=== PATIENT | female | born 1985 | race Caucasian/White ===

== ENCOUNTER 2017-02-22 09:33 | Inpatient (IN) | payer BC ==
[2017-02-22 11:24] LABS: Hematocrit 38 % (35-47); Hemoglobin 12.3 g/dl (12.0-16.0); Mean Corpuscular HGB Conc 32 g/dl (31-36); Mean Corpuscular Hemoglobin 29 pg (27-31); Mean Corpuscular Volume 89 fL (80-97); Red Blood Count 4.29 10^6/ul (4.0-5.4); Red Cell Distribution Width 16 % (10.5-15); White Blood Count 12.1 10^3/ul (3.5-10.8)
[2017-02-22 11:34] LABS: Add Diff/Slide Review? Slide Review Added; Comments Flag Yes
[2017-02-22] MEDS ORDERED: OBEPIDURAL* 250 ML ONE (13:49)
[2017-02-22] MEDS ORDERED: Famotidine TAB* 20 MG PO PRN (15:27)
[2017-02-22] MEDS ORDERED: Phenylephrine IV* 40 MCG/ML 10 ML SYRINGE IV PUSH PRN ×2 (15:27)
[2017-02-22] MEDS ORDERED: EPHEDrine (Pressors)* 50 MG/ML VIAL IV PUSH PRN ×2 (15:27)
[2017-02-22] MEDS ORDERED: Sodium Citrate/Citric Acid* 15 ML UDC PO PRN (15:27)
[2017-02-22] MEDS ORDERED: OBEPIDURAL* 250 ML EPIDURAL SCH (16:00)
[2017-02-22] MEDS ORDERED: Oxytocin in LR* 0 UNITS/0 ML BAG IVPB ONE (19:36)
[2017-02-22 20:02] LABS: Urine Bacteria Absent (Absent); Urine Bilirubin Negative (Negative); Urine Glucose Negative (Negative); Urine Nitrite Negative (Negative)
[2017-02-22] MEDS ORDERED: Acetaminophen TAB* 325 MG PO PRN (21:34)
[2017-02-22] MEDS ORDERED: Acetaminophen TAB* 325 MG ONE (21:36)
[2017-02-22] MEDS ORDERED: Glycerin ADULT SUPP PR PRN (23:48)
[2017-02-22] MEDS ORDERED: Witch Hazel PAD* JAR TOPICAL PRN (23:48)
[2017-02-23] MEDS: Dibucaine 1% 28.35 GM TUBE PR PRN (02:25)
[2017-02-23] MEDS: Ibuprofen TAB* 600 MG PO PRN ×3 (02:34→20:46)
[2017-02-23] MEDS ORDERED: Calcium Carbonate CHEW TAB* 500 MG (TUMS) PO PRN (07:03)
[2017-02-23] MEDS ORDERED: Simethicone CHEW TAB* 80 MG PO SCH (08:30)
[2017-02-23] MEDS ORDERED: Ferrous Gluconate TAB* 324 MG TAB PO SCH (09:00)
[2017-02-23] MEDS: Docusate CAP* 100 MG PO SCH ×3 (09:22→20:46)
[2017-02-23 09:35] LABS: Hematocrit 35 % (35-47); Hemoglobin 11.6 g/dl (12.0-16.0); Mean Corpuscular HGB Conc 33 g/dl (31-36); Mean Corpuscular Hemoglobin 29 pg (27-31); Mean Corpuscular Volume 89 fL (80-97); Mean Platelet Volume 9 um3 (7.4-10.4); Red Blood Count 3.96 10^6/ul (4.0-5.4); Red Cell Distribution Width 16 % (10.5-15); White Blood Count 16.3 10^3/ul (3.5-10.8)
[2017-02-23] MEDS: Acetaminophen TAB* 325 MG PO PRN (22:41)
[2017-02-24] MEDS: Ibuprofen TAB* 600 MG PO PRN ×3 (03:10→17:34)
[2017-02-24 08:22] VITALS: BP 133/85
[2017-02-24] MEDS: Docusate CAP* 100 MG PO SCH ×2 (09:13→14:16)
[2017-02-24] MEDS: Acetaminophen TAB* 325 MG PO PRN (14:16)
[2017-02-24] MEDS: Dibucaine 1% 28.35 GM TUBE PR PRN (17:42)
== END 2017-02-24 18:00 | disposition home or self-care (01) | DRG 560 ==
LOC: MCHOBOUT 09:33 → MCHOB 10:27
PROVIDERS: ADMIT Obstetrics & Gynecology; ATTEND Obstetrics & Gynecology
PROC: 10D07Z6 Extraction of Products of Conception, Vacuum, Via Natural or Artificial Opening (ICD-10-PCS; principal; 2017-02-22)
PROC: 10907ZC Drainage of Amniotic Fluid, Therapeutic from Products of Conception, Via Natural or Artificial Opening (ICD-10-PCS; 2017-02-22)
PROC: 4A1HX4Z Monitoring of Products of Conception, Cardiac Electrical Activity, External Approach (ICD-10-PCS; 2017-02-22)
PROC: 0KQM0ZZ Repair Perineum Muscle, Open Approach (ICD-10-PCS; 2017-02-22)
DX: O24.429 Gestational diabetes mellitus in childbirth, unspecified control (principal); O70.1 Second degree perineal laceration during delivery; Z3A.39 39 weeks gestation of pregnancy; Z37.0 Single live birth; Z82.49 Family history of ischemic heart disease and other diseases of the circulatory system; Z83.3 Family history of diabetes mellitus; Z79.84 Long term (current) use of oral hypoglycemic drugs; Z91.040 Latex allergy status
CPT/HCPCS: 36415; 81003; 81015; 85025; 86850; 86900; 86901; A9270-GY

== ENCOUNTER 2018-01-21 14:45 | Emergency (ER) | payer BC, OTHER ==
[2018-01-21 15:15] VITALS: BP 119/74
--- NOTE | 2018-01-21 15:40 | RAD ---
Indication: Pain following crush injury RIGHT thumb. Comparison: No relevant prior exams available on the [facility] [place] PACS for comparison. Technique: AP, lateral, and oblique views RIGHT thumb. REPORT AND IMPRESSION: Soft tissue swelling most prominent distally. Negative for fracture or malalignment.
--- NOTE | 2018-01-21 15:55 | UC ---
Upper Extremity HPI - HPI Summary HPI Summary: slammed R thumb in car door yesterday. very painful and swollen taking ibuprofen for pain with mod relief feels a little better today - History of Current Complaint Chief Complaint: UCUpperExtremity Stated Complaint: THUMB INJURY Time Seen by Provider: 01/21/18 15:18 Hx Obtained From: Patient Hx Last Menstrual Period: [id number] ?: No Onset/Duration: Sudden Onset Severity Initially: Severe Severity Currently: Moderate Pain Intensity: 5 Character: Throbbing, Stiffness Aggravating Factor(s): Movement Alleviating Factor(s): Elevation Associated Signs And Symptoms: Positive: Swelling, Bruising - Allergies/Home Medications Allergies/Adverse Reactions: Allergies Allergy/AdvReac Type Severity Reaction Status Date / Time latex Allergy Rash And Verified 01/21/18 15:13 Itching PMH/Surg Hx/FS Hx/Imm Hx Previously Healthy: Yes - Surgical History Surgical History: Yes Surgery Procedure, Year, and Place: Ear surgery as a toddler - Family History Known Family History: Positive: None - Social History Occupation: Employed Full-time Lives: With Family Alcohol Use: Occasionally Substance Use Type: None Smoking Status (MU): Never Smoked Tobacco - Immunization History Most Recent Influenza Vaccination: 07/11 Most Recent Tetanus Shot: unknown Most Recent Pneumonia Vaccination: unsure Review of Systems Constitutional: Negative Respiratory: Negative Cardiovascular: Negative Motor: Decreased ROM - R thumb Psychological: Negative All Other Systems Reviewed And Are Negative: Yes Physical Exam Triage Information Reviewed: Yes Appearance: Well-Appearing, No Pain Distress, Well-Nourished Vital Signs: Initial Vital Signs Temp 97.9 F 01/21/18 15:02 Pulse 67 01/21/18 15:02 Resp 20 01/21/18 15:02 BP 119/74 01/21/18 15:02 Pulse Ox 100 01/21/18 15:02 Vital Signs Reviewed: Yes Respiratory Exam: Normal Cardiovascular Exam: Normal Musculoskeletal: Positive: ROM Limited @ - decreased R thump DIP joint Neurological Exam: Normal Skin Exam: Normal Upper Extremity Course/Dx - Differential Dx/Diagnosis Differential Diagnosis/HQI/PQRI: Contusion, Fracture (Closed) Provider Diagnoses: R thumb contusion Discharge - Sign-Out/Discharge Documenting (check all that apply): Discharge/Admit/Transfer - Discharge Plan Condition: Good Disposition: HOME Patient Education Materials: Contusion in Adults (ED) Referrals: Keya Dupree NP [Primary Care Provider] - 5 Days (if no better) Additional Instructions: ice and elevate R hand use ibuprofen 800 mg every 6 hours as needed for pain-take with food - Billing Disposition and Condition Condition: GOOD Disposition: HOME
== END 2018-01-21 16:01 | disposition home or self-care (01) ==
LOC: UCEAST 14:45
DX: S60.011A Contusion of right thumb without damage to nail, initial encounter (principal); W23.0XXA Caught, crushed, jammed, or pinched between moving objects, initial encounter; Y93.9 Activity, unspecified; Y92.810 Car as the place of occurrence of the external cause; Z91.040 Latex allergy status
CPT/HCPCS: 99211; G0463

== ENCOUNTER 2019-07-22 11:42 | Inpatient (IN) | payer BC, OTHER ==
[2019-07-22] MEDS ORDERED: Lactated Ringers 1000 ML Bag* 1,000 ML IV ONE ×2 (14:57→17:54)
[2019-07-22] MEDS ORDERED: Buffered Lidocaine 1% SYRIN* 1 ML/SYRINGE INTRADERM ONE (14:57)
[2019-07-22] MEDS ORDERED: Lactated Ringers 1000 ML Bag* 1,000 ML IV SCH ×2 (15:00→18:00)
[2019-07-22 15:56] LABS: Urine Benzodiazepine Screen None Detected (None Detect); Urine Opiates Screen None Detected (None Detect)
[2019-07-22 17:05] LABS: ABS Lymphocytes 1.9 10^3/ul (1.0-4.8); ABS Monocytes 0.6 10^3/ul (0-0.8); ABS Neutrophils 9.7 10^3/ul (1.5-7.7); Eosinophil % 0.3 %; Hematocrit 38 % (35-47); Hemoglobin 12.4 g/dL (12.0-16.0); Lymphocyte % 15.3 %; Mean Corpuscular HGB Conc 33 g/dL (31-36); Mean Corpuscular Hemoglobin 29 pg (27-31); Mean Corpuscular Volume 88 fL (80-97); Mean Platelet Volume 8.6 fL (7.4-10.4); Nucleated Red Blood Cells % 0.1; Platelet Count 232 10^3/uL (150-450); Red Blood Count 4.27 10^6 /uL (3.70-4.87); Red Cell Distribution Width 16 % (10-15); White Blood Count 12.2 10^3/uL (3.5-10.8)
[2019-07-22] MEDS ORDERED: OBEPIDURAL* 250 ML EPIDURAL ONE (17:10)
--- NOTE | 2019-07-22 17:15 | HP ---
General Information - Reason for Visit Pt presents with increasing ctx since about 0930 this AM. About Q5-7 min. During observation for about 2 hrs, ctx became stronger and more frequent. - General Information Maternal Age: 34 Grav: 2 Para: 1 SAB: 0 IEA: 0 Estimated Due Date: 08/03/19 Determined By: LMP Gestational Age in Weeks/Days: 38+2 Maternal Blood Type and Rh: A Positive - Results this Serology/RPR Result: Non-Reactive Rubella Result: Immune HBsAg Result: Negative HIV Result: Negative GBS Culture Result: Negative Past Medical History Delivery History: Hx Uncomplicated Vaginal Delivery - vacuum Pertinent Past Medical History: See Records - asthma, eczema, back pain Pertinent Past Surgical History: See Records - myringotomy Pertinent Family History: Non-Contributory - Antepartal Records Antepartal Records: Reviewed, Complicated by: - GDMA2 on glyburide Review of Systems Constitutional: Uncomfortable CV Complaint: No Respiratory: Shortness of Breath: No Gastrointestinal: No Nausea/Vomiting, Normal Bowel Movement Genitourinary: No Bleeding, No Leaking Fluid Musculoskeletal: Contractions Neurological: No Headache Movement: Normal Exam Allergies/Adverse Reactions: Allergies latex Allergy (Verified 01/21/18 15:13) Rash And Itching Vital Signs 07/22/19 12:30 Temperature 99.5 F Pulse Rate 113 Respiratory 22 Rate Blood Pressure 136/67 (mmHg) O2 Sat by Pulse 99 Oximetry Lab Values - Entire Visit: Laboratory Tests 07/22/19 07/22/19 07/22/19 15:10 15:12 15:15 WBC RBC Hgb Hct MCV MCH MCHC RDW Plt Count MPV Neut % (Auto) Lymph % (Auto) [place] % (Auto) Eos % (Auto) Baso % (Auto) Absolute Neuts (auto) Absolute Lymphs (auto) Absolute Monos (auto) Absolute Eos (auto) Absolute Basos (auto) Absolute Nucleated RBC Nucleated RBC % POC Glucose (mg/dL) 54 L 81 Urine Opiates Screen None detected Ur Barbiturates Screen None detected Ur Phencyclidine Scrn None detected Ur Amphetamines Screen None detected U Benzodiazepines Scrn None detected Urine Cocaine Screen None detected U Cannabinoids Screen None detected 07/22/19 16:48 WBC 12.2 H RBC 4.27 Hgb 12.4 Hct 38 MCV 88 MCH 29 MCHC 33 RDW 16 H Plt Count 232 MPV 8.6 Neut % (Auto) 79.0 Lymph % (Auto) 15.3 [place] % (Auto) 5.3 Eos % (Auto) 0.3 Baso % (Auto) 0.1 Absolute Neuts (auto) 9.7 H Absolute Lymphs (auto) 1.9 Absolute Monos (auto) 0.6 Absolute Eos (auto) 0.0 Absolute Basos (auto) 0.0 Absolute Nucleated RBC 0.0 Nucleated RBC % 0.1 POC Glucose (mg/dL) Urine Opiates Screen Ur Barbiturates Screen Ur Phencyclidine Scrn Ur Amphetamines Screen U Benzodiazepines Scrn Urine Cocaine Screen U Cannabinoids Screen - Measurements Height: 5 ft 4 in Weight: 224 lb Weight in lbs: 224.448882 Body Mass Index (BMI): 38.4 Pre- Weight: 218 lb Weight Gained This : 6 lbs and 0 ozs - Exam Breast: Breast Exam Deferred CVA: No CVA Tenderness Extremities: No Edema Heart: Normal Rhythm/Heart Sounds HEENT: No Significant Findings Lungs: Clear Bilaterally Rectal: Rectal Exam Deferred - Abdominal Exam Abdomen Exam: Non-Tender, Fundal Height Consistent with Dates - Ultrasound/Biophysical Profile Ultrasound Status: Not Done Targeted Exam Findings Estimated Weight: 7 lbs Cervical Exam: 3cm - , almost 4cm Effacement: 90% Station: -1 Presenting Part: Vertex Membrane Status: Intact Bleeding/Discharge: None EFM Findings - External Monitor Findings Baseline Heart Rate: 140 External Monitor Findings: Accelerations Present, No Pattern of Variable or Late Decelerations, Variability Moderate, Baseline Stable Contractions: Regular, Moderate Contraction Frequency: Q3 Assessment/Plan - Assessment 38+2 wks with GDMA2, well controlled with Glyburide 5mg QHS, now getting into labor. Expect . Pt plans epidural when more uncomfortable. Plan to watch BGs regularly, add D5 and/or insulin as needed. - Obstetrical Risk Factors Obstetrical Risk Factors: Gestational Diabetes - Plan Plan: Admit - Anticipate Vaginal Delivery - Date/Time of Admission Date of Admission: 07/22/19 Time of Admission: 14:30
[2019-07-22] MEDS ORDERED: EPHEDrine (Pressors)* 50 MG/ML VIAL IV PUSH PRN ×2 (17:54)
[2019-07-22] MEDS ORDERED: Phenylephrine 40 MCG/ML SYRINGE IV PUSH PRN ×2 (17:54)
[2019-07-22] MEDS ORDERED: Famotidine TAB* 20 MG PO PRN (17:54)
[2019-07-22] MEDS ORDERED: Sodium Citrate/Citric Acid* 15 ML UDC PO PRN (17:54)
[2019-07-22] MEDS ORDERED: OBEPIDURAL* 250 ML EPIDURAL SCH (18:00)
[2019-07-22] MEDS ORDERED: D5LR 1000 ML BAG* 1,000 ML IV SCH (20:00)
[2019-07-22] MEDS ORDERED: Oxytocin in LR* 20 UNITS/1,000 ML BAG IVPB SCH (22:00)
--- NOTE | 2019-07-23 00:46 | PROCNOTE ---
[facility] OB: Delivery Note - Delivery A Date of : 07/23/19 Time of : 00:14 [place] Sex: Male Weight at : 7 lb 2 oz Score 1 Minute: 8 Score 5 Minutes: 9 Gestational Age in Weeks and Days at Delivery: 38 Weeks and 3 Days Delivery Method: Spontaneous Vaginal Labor: Spontaneous Did Patient attempt ?: N/A, No Previous Amniotic Fluid: Clear Estimated Blood Loss: 350 Anesthesia/Analgesia: CEI for Labor Delivered By: David Fowler - Nursery Level of Nursery: Regular/Bedside - Perineum Perineal Injury: 2nd Degree Perineal Injury Comment: Right labial Perineal Repair: By Delivering Practioner - Events Delivery Events of Note: Pitocin During Labor - Additional Delivery Notes Additional Delivery Notes: Pt presented in early labor at 38+2 wks. She progressed to 4cm and received and epidural which worked well. AROM performed, clear fluid. She had slow progress to 5cm, and ctx slowed so low dose pitocin was added. Ctx improved, and she progressed quickly to C/C/+2. Pt pushed for about 40 min to deliver the head in a controlled fashion. Shoulders and body delivered without difficulty, and the cried immediately. Infant placed on mother's abdomen. Cord doubly clamped and cut after >60 sec. Cord blood collected. IV pitocin increased. Intact placenta delivered spontaneously. 1% lidocaine injected. A second degree perineal and small right labial lac were repaired with 3-0 and 4-0 Vicryl Rapide.
[2019-07-23] MEDS ORDERED: Lactated Ringers 1000 ML Bag* 1,000 ML IV SCH (01:00)
[2019-07-23] MEDS ORDERED: Oxytocin in LR* 20 UNITS/1,000 ML BAG IVPB SCH (01:00)
[2019-07-23] MEDS ORDERED: Lidocaine 1% INJ* 10 MG/ML 30 ML SDV ONE (03:43)
[2019-07-23] MEDS: Dibucaine 1% 28.35 GM TUBE PR PRN (03:44)
[2019-07-23] MEDS: Ibuprofen TAB* 600 MG PO SCH ×4 (03:44→18:00)
[2019-07-23] MEDS: Witch Hazel PAD* JAR TOPICAL PRN (03:44)
[2019-07-23 06:37] LABS: ABS Lymphocytes 1.8 10^3/ul (1.0-4.8); ABS Monocytes 0.9 10^3/ul (0-0.8); ABS Neutrophils 9.7 10^3/ul (1.5-7.7); Eosinophil % 0.1 %; Hematocrit 34 % (35-47); Hemoglobin 11.5 g/dL (12.0-16.0); Lymphocyte % 14.6 %; Mean Corpuscular HGB Conc 34 g/dL (31-36); Mean Corpuscular Hemoglobin 30 pg (27-31); Mean Corpuscular Volume 89 fL (80-97); Mean Platelet Volume 8.3 fL (7.4-10.4); Platelet Count 208 10^3/uL (150-450); Red Blood Count 3.87 10^6 /uL (3.70-4.87); Red Cell Distribution Width 16 % (10-15); White Blood Count 12.5 10^3/uL (3.5-10.8)
[2019-07-23] MEDS: Docusate CAP* 100 MG PO SCH ×3 (08:00→22:38)
[2019-07-23] MEDS ORDERED: Simethicone TAB* 80 MG TAB.CHEW PO SCH (08:30)
[2019-07-23] MEDS: Acetaminophen TAB* 325 MG PO PRN ×2 (16:44→22:38)
[2019-07-24] MEDS: Ibuprofen TAB* 600 MG PO SCH ×4 (05:14→19:46)
[2019-07-24] MEDS: Docusate CAP* 100 MG PO SCH ×3 (07:11→19:46)
[2019-07-24] MEDS ORDERED: Ferrous Gluconate TAB* 324 MG TAB PO SCH (09:00)
[2019-07-25] MEDS: Ibuprofen TAB* 600 MG PO SCH ×2 (01:51→09:29)
[2019-07-25] MEDS: Docusate CAP* 100 MG PO SCH (08:17)
[2019-07-25] MEDS: Dibucaine 1% 28.35 GM TUBE PR PRN (08:17)
[2019-07-25] MEDS: Witch Hazel PAD* JAR TOPICAL PRN (08:17)
[2019-07-25 12:14] VITALS: BP 118/72
== END 2019-07-25 12:59 | disposition home or self-care (01) | DRG 807 ==
LOC: MCHOBOUT 11:42 → MCHOB 14:44
PROVIDERS: ADMIT Obstetrics & Gynecology; ATTEND Obstetrics & Gynecology
PROC: 10E0XZZ Delivery of Products of Conception, External Approach (ICD-10-PCS; principal; 2019-07-23)
PROC: 0KQM0ZZ Repair Perineum Muscle, Open Approach (ICD-10-PCS; 2019-07-23)
PROC: 10907ZC Drainage of Amniotic Fluid, Therapeutic from Products of Conception, Via Natural or Artificial Opening (ICD-10-PCS; 2019-07-23)
DX: O24.425 Gestational diabetes mellitus in childbirth, controlled by oral hypoglycemic drugs (principal); Z37.0 Single live birth; O70.1 Second degree perineal laceration during delivery; Z3A.38 38 weeks gestation of pregnancy
CPT/HCPCS: 36415; 80307; 85025; 86850; 86870; 86880; 86900; 86901; A9270-GY